=== PATIENT | male | born 1995 | race Caucasian/White ===

== ENCOUNTER 2016-08-10 12:07 | Emergency (ER) | payer OTHER ==
[2016-08-10 12:17] VITALS: BP 130/83; PULSE 90; RESP 19; TEMP 98.7; O2SAT 97
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
[2016-08-10] MEDS ORDERED: Lidocaine 1% Inj (20ml) ONE (12:28)
== END 2016-08-10 13:07 | disposition home or self-care (01) ==
LOC: ED 12:07
DX: S61.411A Laceration without foreign body of right hand, initial encounter (principal); W01.0XXA Fall on same level from slipping, tripping and stumbling without subsequent striking against object, initial encounter; Y93.89 Activity, other specified; Y92.89 Other specified places as the place of occurrence of the external cause

== ENCOUNTER 2017-01-19 19:51 | Emergency (ER) | payer OTHER ==
[2017-01-19 20:00] VITALS: BMI 20.9
[2017-01-19 20:02] VITALS: BP 139/81; PULSE 91; RESP 17; TEMP 98.2; O2SAT 96
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
== END 2017-01-19 21:14 | disposition home or self-care (01) ==
LOC: ED 19:51
DX: S13.9XXA Sprain of joints and ligaments of unspecified parts of neck, initial encounter (principal); V49.9XXA Car occupant (driver) (passenger) injured in unspecified traffic accident, initial encounter